=== PATIENT | male | born 1995 | race African-American/Black ===

== ENCOUNTER 2020-01-14 03:47 | Emergency (ER) | payer SELFPAY ==
[~2020-01-14] VITALS: Ht 177.8 cm; Wt 75.0 kg
[2020-01-14 04:01] VITALS: TEMP 98.3
[2020-01-14 05:02] LABS: BASO % 0.4 % (0.0-2.0); EOS # 0.1 (0.0-0.7); EOS % 1.6 % (0-4.0); GRAN # 4.9 (1.4-6.5); GRAN % 63.2 % (42.2-75.2); HEMATOCRIT 43.5 % (42.0-52.0); HEMOGLOBIN 14.7 g/dl (13.5-18.0); LYMPH % 25.9 % (20.0-51.0); MEAN CELL VOLUME 84 fl (80.0-100.0); MEAN CORPUSCULAR HEMOGLOBIN 28 pg (27.0-31.0); MEAN CORPUSCULAR HGB CONC 34 g/dl (33.0-37.0); MEAN PLATELET VOLUME 9.4 fl (7.4-10.4); MONO # 0.7 (0.1-0.6); MONO % 8.9 % (1.7-9.3); PLATELET COUNT 239 K/mm3 (130-400); RED BLOOD COUNT 5.19 M/mm3 (4.20-5.60); REDCELL DISTRIBUTION WIDTH-CV 12.7 % (11.5-14.5)
[2020-01-14 05:10] LABS: ALANINE AMINOTRANSFERASE 20 U/L (4-49); ALBUMIN 4.4 gm/dL (3.5-5.0); ALKALINE PHOSPHATASE 94 U/L (50-136); ANION GAP 10 mmol/L (7-16); AST,SGOT 33 U/L (15-37); BILIRUBIN,TOTAL 0.4 mg/dL (0.0-1.0); BLOOD UREA NITROGEN 20 mg/dL (9-20); CALCIUM 9.4 mg/dL (8.4-10.2); CARBON DIOXIDE 27 mmol/L (22-30); CHLORIDE 100 mmol/L (98-107); CREATININE, serum 1.12 (0.66-1.25); GLUCOSE 106 mg/dL (74-106); MAGNESIUM 2.2 mg/dL (1.6-2.3); POTASSIUM 3.9 mmol/L (3.4-5.0); SODIUM 137 mmol/L (137-145)
[2020-01-14 05:22] LABS: TROPONIN-I < 0.012 ng/mL (0.000-0.035)
[2020-01-14 06:32] VITALS: BP 127/75; PULSE 61
== END 2020-01-14 07:45 | disposition home or self-care (01) ==
LOC: COL.ER 03:47
PROVIDERS: Emergency Medicine
DX: R00.2 Palpitations (principal)